=== PATIENT | female | born 1965 ===

== ENCOUNTER 2019-02-01 10:34 | Emergency (ER) | payer OTHER ==
[~2019-02-01] VITALS: Ht 165.1 cm; Wt 90.9 kg
[2019-02-01 10:40] VITALS: BP 158/92
[2019-02-01] MEDS ORDERED: OXYMETAZOLINE NASAL SPRAY 0.05%,30ML ONE (11:27)
[2019-02-01] MEDS ORDERED: OXYMETAZOLINE NASAL SPRAY 0.05%, 15ML NAS ONE (11:30)
[2019-02-01] MEDS ORDERED: TRANEXAMIC ACID 100 MG/ML, 10ML ONE (11:49)
[2019-02-01] MEDS ORDERED: ONDANSETRON ODT 4 MG ONE (11:50)
[2019-02-01] MEDS ORDERED: ONDANSETRON ODT 4 MG PO ONE (12:00)
[2019-02-01] MEDS ORDERED: TRANEXAMIC ACID 100 MG/ML, 10ML TP ONE (12:00)
[2019-02-01 12:36] LABS: BASOPHILS # (AUTO) 0.03 x10^3/uL (0-0.1); BASOPHILS % (AUTO) 0 % (0-1); EOSINOPHILS # (AUTO) 0.07 x10^3/uL (0-0.4); EOSINOPHILS % (AUTO) 1 % (1-7); LYMPHOCYTES # (AUTO) 1.66 x10^3/uL (1-3.4); LYMPHOCYTES % (AUTO) 28 % (22-44); MD NO; MEAN CORPUSCULAR HGB CONC 33.1 g/dL (32.4-35.8); MEAN CORPUSCULAR VOLUME 96.6 fL (80-100); MEAN PLATELET VOLUME 7.5 fL (7.4-10.4); MONOCYTES # (AUTO) 0.35 x10^3/uL (0.2-0.8); MONOCYTES % (AUTO) 6 % (2-9); NEUTROPHILS # (AUTO) 3.92 x10^3/uL (1.8-6.8); NEUTROPHILS % (AUTO) 65 % (42-75); PLATELET COUNT 267 x10^3/uL (130-400); RED BLOOD COUNT 4.42 x10^6/uL (3.82-5.3); RED CELL DISTRIBUTION WIDTH 12.7 % (9.6-15.2)
[2019-02-01] MEDS ORDERED: SILVER NITRATE STICK TP ONE ×2 (12:44→13:00)
--- NOTE | 2019-02-01 13:24 | NUR ---
ERP AT BEDSIDE FOR CONTINUED CARE OF EPISTAXIS. BLEEDING CONTROLLED AT THIS TIME. PT DENIES ANY NEEDS OR CONCERNS. CALL LIGHT IN REACH.
== END 2019-02-01 13:51 | disposition home or self-care (01) ==
LOC: ED 13:30
DX: R04.0 Epistaxis (principal)
CPT/HCPCS: 30901; 36415; 85025; 99284; Q0162